=== PATIENT | female | born 1960 | race Caucasian/White ===

== ENCOUNTER 2018-07-12 23:03 | Emergency (ER) | payer OTHER ==
[~2018-07-12] VITALS: Ht 165.1 cm; Wt 72.6 kg
[~2018-07-12 23:03] MED LIST: ASA81 MG; COREG CR10 MG; COZAAR25 MG; DIGOXIN125 MCG; HUMALOG100 U/ML; LANTUS100 U/ML; LASIX20 MG; LIPITOR40 MG; NEURONTIN300 MG; PLAVIX75 MG
[2018-07-12] MEDS ORDERED: VASOTEC5 MG (23:32)
[2018-07-12] MEDS ORDERED: ALDACTONE25 MG (23:33)
== END 2018-07-13 08:12 | disposition designated cancer center or children's hospital (05) ==
LOC: ER 23:03
DX: K29.70 Gastritis, unspecified, without bleeding (principal); K80.00 Calculus of gallbladder with acute cholecystitis without obstruction